=== PATIENT | male | born 1980 | race Caucasian/White ===

== ENCOUNTER 2020-11-19 13:07 | Emergency (ER) | payer SELFPAY ==
--- NOTE | 2020-11-19 | XR_ITS ---
EXAMINATION: XR RIBS, LEFT CLINICAL INFORMATION: Status post fall yesterday COMPARISON: None TECHNIQUE: View of the chest and 3 views of the left ribs were obtained. FINDINGS: There is no focal consolidation. There is no pneumothorax. The trachea is midline. The cardiac mediastinal silhouette is not enlarged. There is no pleural effusion. Osseous structures are intact. No acute visualized left-sided rib fractures. XR/XR ribs LT min 3V w [id number] IMPRESSION: 1. No acute cardiac pulmonary process. 2. No acute visualized left-sided rib fractures.
[2020-11-19 13:12] VITALS: BP 106/73; BP 138/62; PULSE 90; PULSE 95; RESP 20; TEMP 37.2; O2SAT 100; O2SAT 97; BMI 26.6
--- NOTE | 2020-11-19 13:47 | ED.ALCOHOL ---
HPI - Alcohol General Chief Complaint: ETOH/Substance Use Stated Complaint: evaluation,drug use/heroin Time Seen by Provider: 11/19/20 13:19 Source: patient and EMS Mode of arrival: EMS Limitations: no limitations History of Present Illness HPI narrative: Patient comes to emergency room after being found acting erratically in the street. Patient states that he accepts that he has been drinking alcohol, used cocaine and meth. Patient is not sure called police department. Patient remained calm and cooperative with police department, he was brought to the emergency room. Patient states that he is aware that he is intoxicated, denies suicidal or homicidal ideation. complaint: alcohol intoxication Related Data Allergies Allergy/AdvReac Type Severity Reaction Status Date / Time No Known Allergies Allergy Verified 11/19/20 13:50 Review of Systems Review of Systems: Constitutional : No Weight loss, No Fever, No Chills, No Night Sweats, No Fatigue, No Malaise ENT/Mouth : No Hearing loss, No Ear Pain, No Nasal Congestion, No Sinus Pain, No Hoarseness, No sore throat, No Rhinorrhea, No Swallowing Difficulty Eyes: No Eye Pain, No Swelling, No Redness, No Foreign Body, No Discharge, No Vision Changes Cardiovascular : No Chest Pain, No SOB, No Dyspnea on Exertion, No Orthopnea, No Edema, No Palpitations Respiratory : No Cough, No Sputum, No Wheezing, No Smoke Exposure, No Dyspnea Gastrointestinal : No Nausea, No Vomiting, No Diarrhea, No Constipation, No abdominal Pain, No Hematochezia, No Melena Genitourinary : no irregular bleeding, No Dysuria, No Urinary Frequency, No Hematuria, No Urinary Incontinence, No Urgency, No Flank Pain, No Urinary Flow Changes, No Hesitancy Musculoskeletal : No joint pain, No Myalgias, No Joint Swelling, complaining of rib pain, states he fell 1 week ago Skin : No Skin Lesions, No rash Neuro : No Weakness, No Numbness, No Paresthesias, No Loss of Consciousness, No Dizziness, No Headache Psych : No Anxiety/Panic, No Depression, No SI/HI/AH/VH, Heme/Lymph: No Bruising, No Bleeding,No Lymphadenopathy Endocrine : No Polyuria, No Polydipsia, No Temperature Intolerance PMF Past Medical History Medical History (Updated 11/19/20 @ 17:33 by Cathryn Carey MD) Substance abuse Social History Social History Advance Directives: No Advance Directives Information Provided: No Physical Exam Vital Signs: Vital Signs: Last Vital Signs Temp 99 F 11/19/20 13:12 Pulse 95 11/19/20 13:12 Resp 20 11/19/20 13:12 BP 106/73 11/19/20 13:12 Pulse Ox 100 11/19/20 13:12 Body Mass Index 26.6 Appearance: Alert. Oriented X3. No acute distress. Mild slurry speech, patient calm and cooperative Eyes: Pupils equal, round and reactive to light. ENT: Pharynx normal. Neck: Normal inspection. Neck supple. No lymph nodes noted. No crepitus CVS: Normal heart rate and rhythm. Pulses normal. Normal S1 and S2 Respiratory: No respiratory distress. Breath sounds normal. No Wheezing. No rales , complaining of pain to palpation on the ribs of the left side Abdomen: Soft and nontender. No rigidity. No distention. good BS x4 Skin: Skin warm and dry. Normal skin color. Normal skin turgor. Extremities: No lower extremity edema. No lower extremity edema. No Lacerations. No Rash Neuro: Oriented X 3. No motor deficit. No sensory deficit. Moving all extermities. No slurred speech. Course Course Course Narrative: Patient's x-ray show no acute fracture. As I was looking for the patient to inform him of his results, patient was not in his room, I was informed by the patient's nurse that the patient has steady gait, told his nurse that his ride was waiting for him outside and eloped Discharge Plan Discharge Clinical Impression: Substance abuse, Costochondritis Patient Disposition: Elopement Interventions: ED Discharge Assessment Last Done: 11/19/20 14:50 Discharge Date/Time: 11/19/20 14:24
--- NOTE | 2020-11-19 14:24 | PC.NURSE ---
pt is not at bedside.
== END 2020-11-19 14:24 | disposition left against medical advice (07) ==
PROVIDERS: Emergency Provider Emergency Medicine
DX: M94.0 Chondrocostal junction syndrome [Tietze] (principal); F14.10 Cocaine abuse, uncomplicated; F11.10 Opioid abuse, uncomplicated; Z71.51 Drug abuse counseling and surveillance of drug abuser
CPT/HCPCS: 71101; 99283